=== PATIENT | male | born 1970 | race Caucasian/White ===

== ENCOUNTER 2018-09-06 12:47 | Day surgery (SDC) | payer MEDICARE ==
[~2018-09-06] VITALS: Ht 180.3 cm; Wt 97.1 kg
[2018-09-06 13:19] VITALS: BP 115/86; PULSE 96; TEMP 97.9
[2018-09-06] MEDS ORDERED: MEGA MULTIVITAM1 TAB PO (13:27)
[2018-09-06] MEDS ORDERED: OMEGA-3 1000 MG1 CAP PO (13:27)
[2018-09-06] MEDS ORDERED: WELLBUTRIN XL150 MG PO (13:28)
[2018-09-06] MEDS ORDERED: CYMBALTA 60MG60 MG PO (13:29)
--- NOTE | 2018-09-06 13:29 | NUR ---
TO RM AT 1300- CALL LIGHT IN REACH SISTER AND MOTHER IN LOBBY PER PATIENT REQUEST
[2018-09-06 14:37] VITALS: BP 122/81; PULSE 102; TEMP 98.5
--- NOTE | 2018-09-06 14:37 | NUR ---
TO BAY 4 PER CART FROM ENDOSCOPY. ALERT ORIENTED X3, AMBULATED TO RECLINER AND TOLERATED WELL. RECEIVED MUFFIN AND OJ. DENIES PAIN OR DISCOMFORT AT THIS TIME.
[2018-09-06 14:50] VITALS: BP 121/86; PULSE 98
--- NOTE | 2018-09-06 14:50 | NUR ---
ATE 100% AND TOLERATED WELL.
[2018-09-06 14:51] VITALS: BP 119/76; PULSE 82
--- NOTE | 2018-09-06 15:00 | NUR ---
DR LARA INTO TALK WITH PATIENT. RECEIVED DISCHARGE INSTRUCTIONS AND VERBALIZED UNDERSTANDING. DISCONTINUED IV AND INT- CATHETER INTACT. PATIENT GETTING DRESSED
--- NOTE | 2018-09-06 15:15 | NUR ---
DISCHARGED PER WC BY NURSING STAFF TO PRIVATE CAR IN CARE OF SISTERLisa MORALES
== END 2018-09-06 15:22 | disposition home or self-care (01) ==
LOC: SDCO 12:47
DX: Z12.11 Encounter for screening for malignant neoplasm of colon (principal); D12.2 Benign neoplasm of ascending colon; D12.0 Benign neoplasm of cecum
CPT/HCPCS: OP; J2250; J3010; J7030